=== PATIENT | male | born 1950 | race Caucasian/White ===

== ENCOUNTER 2016-09-25 21:20 | Emergency (ER) | payer OTHER, MEDICARE ==
--- NOTE | 2016-09-25 22:50 | ED ORDER SUMMARY ---
..... Patient: YOON DOWELL OrderSheet [facility] VisitID: [id number] [address] [place] [address] 66y, M Registration Date/Time: 09/25/2016 ORDER SHEET Weight: 97.5 kg (stated) Allergies: Penicillins GENERAL ORDERS: MEDICATION ORDERS: Benadryl PO 50 mg (NOW) (21:40 09/25/2016 Gianlefaustino P.A.-C) (Ack 21:40 JDeElena R.N.) (21:43 JDeElena R.N.) Dexamethasone PO 8mg (NOW) (21:40 09/25/2016 Gerhard P.A.-C) (Ack 21:40 JDeElena R.N.) (21:43 JDeElena R.N.) IV FLUIDS: ORDER SHEET NOTES: [Electronically signed by Daniel Soto R.N. (23:01 09/25/2016)] [Electronically signed by Yane Nation P.A.-C (14:48 09/26/2016)] [Electronically locked/signed by Daniel Soto R.N. (23:01 09/25/2016)]
--- NOTE | 2016-09-25 22:50 | ED NURSING NOTES ---
Clinical Report - Nurses [facility] [address] [address] 09/25/2016 21:24 Patient: JOHNSON DOWELL TRIAGE Triage time 21:30. Acuity: LEVEL 4. Chief Complaint: SKIN RASH and . Johnson says he ate lemon chicken and anguillan fries, went to take a shower, and noticed redness and swelling around his eyes and on his cheeks. The areas are non-tender and do not itch. He reports he can feel his eyes swelling. Johnson believes he may be allergic to the lemon chicken they consumed tonight. Alert. No acute distress. SEPSIS SCREEN: Sepsis Screen: negative. Negative (no infection suspected/documented). --21:35 Ishaan Preciado R.N. 21:30 09/25/16. BP: 179/93 (regular adult cuff) taken on the left arm, via an automated monitor, while sitting. HR: 71 (normal rate). RR: 16 (regular, unlabored and normal). O2 saturation: 94% on room air. Temp: 98 F (oral). Pain level now: 0/10. --21:35 Ishaan Preciado R.N. Weight: 97.5 kg stated. Height/Length: 68 inches Per Patient. BMI: 32.7. --21:33 Ishaan Preciado R.N. Medications ALPRAZolam Oral. --21:33 Ishaan Preciado R.N. Multivitamins Oral. --21:33 Ishaan Preciado R.N. Medication/allergy information source: the patient. --21:35 Ishaan Preciado R.N. Allergies Penicillins. --21:34 Ishaan Preciado R.N. History Arrived by private vehicle. Historian: patient. Accompanied by spouse. Primary physician (Dr. Napoles). Reported as located on the face. This started just prior to arrival. Not itchy, burning or painful. SOCIAL HX: Smoker- current status unknown. Never smoker. No alcohol use or drug use. He has not traveled outside the [place] The patient was not exposed to MRSA. ABUSE ASSESSMENT: Abuse assessment: The patient was asked "Do you feel safe in your home?" and "Has anyone hurt you or threatened to hurt you?". No report of abuse. SELF HARM ASSESSMENT: A self harm assessment was performed. The patient answered "no" to the question "Do you have thoughts of harming or killing yourself?" and "Have you recently had thoughts about harming or killing others?". FALL RISK ASSESSMENT: Fall risk assessment completed. No fall risk identified. NUTRITIONAL RISK ASSESSMENT: The nutritional risk assessment revealed no deficiencies. FUNCTIONAL ASSESSMENT: Functional assessment: no impairments noted. LEARNING NEEDS ASSESSMENT: The learning needs assessment revealed no barriers. SKIN INTEGRITY ASSESSMENT: Skin integrity risk assessment completed. No skin integrity risk identified. --21:35 Ishaan Preciado R.N. ADDITIONAL SURGERIES: Hernia Repair. --21:35 Ishaan Preciado R.N. Assessment GENERAL / NEURO / PSYCH: Alert. Oriented X 4. Appears in no acute distress. [place] Coma Scale: 15- eyes open spontaneously (4); best verbal response- oriented x 4 (5); best motor response- obeys commands (6). Patient appears calm and cooperative. RESPIRATORY: Respirations not labored. SKIN: Skin is warm and dry. --21:35 Ishaan Preciado R.N. Interventions ID band on patient. To treatment room. --21:35 Ishaan Preciado R.N. PHYSICAL ASSESSMENT Ambulatory to room. GENERAL / NEURO / PSYCH: Alert. The patient does not appear to be in acute distress. Oriented X 4. RESPIRATORY: No respiratory distress. Respirations not labored. Breath sounds within normal limits. CVS: Heart sounds within normal limits. Capillary refill less than 2 seconds. Pulses within normal limits. GI / : Abdomen nontender and soft. SKIN: ( Erythema noted to face around cheeks). --21:40 Ishaan Preciado R.N. NURSING PROGRESS NOTES The initial plan of care for this patient has been created This plan of care was discussed with the patient. Patient gowned. Reassurance given to the patient. Two patient identifiers checked. Call light placed in reach. Side rails up x 1. Bed placed in lowest position. Brakes of bed on. --21:36 Ishaan Preciado R.N. 21:36 09/25/16. BP: 177/90 (regular adult cuff) taken on the right arm, via an automated monitor, while lying. HR: 74 (normal rate). O2 saturation: 96% on room air. --21:36 Ishaan Preciado R.N. 21:43 09/25/2016 Benadryl (DiphenhydrAMINE HCl) PO Capsules 50 mg given. Allergies verified, confirmed 5 rights and sedative warning given to the patient. --21:43 Ishaan Preciado R.N. 21:43 09/25/2016 Dexamethasone (Dexamethasone) PO Tablets 8 mg given. Allergies verified and confirmed 5 rights. --21:43 Ishaan Preciado R.N. Reassessment after medication administered (States he feels a lot better.). He is calm and resting quietly. Overall patient status is improved- he states feels better. RESPIRATORY: No respiratory distress. SKIN: Skin is warm and dry. Skin color within normal limits. --22:29 Ishaan Preciado R.N. 22:28 09/25/16. BP: 167/90 (regular adult cuff) taken on the left arm, via an automated monitor, while sitting. HR: 71 (normal rate). RR: 14 (regular, unlabored and normal). O2 saturation: 94% on room air. --22:29 Ishaan Preciado R.N. DISPOSITION / DISCHARGE Departure time: 23:00. Condition at departure: improved. ( the facial swelling has improved). No learning barriers present. Discharge instructions provided and reviewed with the patient and spouse. Reviewed medication(s) side effects, precautions, dosing and course information. Prescription(s) given to the patient. Patient and spouse verbalized understanding. Written instructions provided in Cuban. ( Pt was educated about neck swelling, sob and tightness in throat to call 911 and come to the ER.). The patient was discharged by the physician assistant technician. He was discharged home and accompanied by spouse. He left the Emergency Department ambulatory and via private vehicle. Spouse driving. --23:00 Daniel Soto R.N. Locked/Released at 09/25/2016 23:01 by Daniel Soto R.N.
--- NOTE | 2016-09-25 22:50 | ED NURSING NOTES ---
Clinical Report - Nurses [facility] [address] [place] [address] 09/25/2016 21:24 Patient: JOHNSON DOWELL TRIAGE Triage time 21:30. Acuity: LEVEL 4. Chief Complaint: SKIN RASH and . Johnson says he ate lemon chicken and egyptian fries, went to take a shower, and noticed redness and swelling around his eyes and on his cheeks. The areas are non-tender and do not itch. He reports he can feel his eyes swelling. Johnson believes he may be allergic to the lemon chicken they consumed tonight. Alert. No acute distress. SEPSIS SCREEN: Sepsis Screen: negative. Negative (no infection suspected/documented). --21:35 Ishaan Preciado R.N. 21:30 09/25/16. BP: 179/93 (regular adult cuff) taken on the left arm, via an automated monitor, while sitting. HR: 71 (normal rate). RR: 16 (regular, unlabored and normal). O2 saturation: 94% on room air. Temp: 98 F (oral). Pain level now: 0/10. --21:35 Ishaan Preciado R.N. Weight: 97.5 kg stated. Height/Length: 68 inches Per Patient. BMI: 32.7. --21:33 Ishaan Preciado R.N. Medications ALPRAZolam Oral. --21:33 Ishaan Preciado R.N. Multivitamins Oral. --21:33 Ishaan Preciado R.N. Medication/allergy information source: the patient. --21:35 Ishaan Preciado R.N. Allergies Penicillins. --21:34 Ishaan Preciado R.N. History Arrived by private vehicle. Historian: patient. Accompanied by spouse. Primary physician (Dr. Napoles). Reported as located on the face. This started just prior to arrival. Not itchy, burning or painful. SOCIAL HX: Smoker- current status unknown. Never smoker. No alcohol use or drug use. He has not traveled outside the [place] The patient was not exposed to MRSA. ABUSE ASSESSMENT: Abuse assessment: The patient was asked "Do you feel safe in your home?" and "Has anyone hurt you or threatened to hurt you?". No report of abuse. SELF HARM ASSESSMENT: A self harm assessment was performed. The patient answered "no" to the question "Do you have thoughts of harming or killing yourself?" and "Have you recently had thoughts about harming or killing others?". FALL RISK ASSESSMENT: Fall risk assessment completed. No fall risk identified. NUTRITIONAL RISK ASSESSMENT: The nutritional risk assessment revealed no deficiencies. FUNCTIONAL ASSESSMENT: Functional assessment: no impairments noted. LEARNING NEEDS ASSESSMENT: The learning needs assessment revealed no barriers. SKIN INTEGRITY ASSESSMENT: Skin integrity risk assessment completed. No skin integrity risk identified. --21:35 Ishaan Preciado R.N. ADDITIONAL SURGERIES: Hernia Repair. --21:35 Ishaan Preciado R.N. Assessment GENERAL / NEURO / PSYCH: Alert. Oriented X 4. Appears in no acute distress. [place] Coma Scale: 15- eyes open spontaneously (4); best verbal response- oriented x 4 (5); best motor response- obeys commands (6). Patient appears calm and cooperative. RESPIRATORY: Respirations not labored. SKIN: Skin is warm and dry. --21:35 Ishaan Preciado R.N. Interventions ID band on patient. To treatment room. --21:35 Ishaan Preciado R.N. PHYSICAL ASSESSMENT Ambulatory to room. GENERAL / NEURO / PSYCH: Alert. The patient does not appear to be in acute distress. Oriented X 4. RESPIRATORY: No respiratory distress. Respirations not labored. Breath sounds within normal limits. CVS: Heart sounds within normal limits. Capillary refill less than 2 seconds. Pulses within normal limits. GI / : Abdomen nontender and soft. SKIN: ( Erythema noted to face around cheeks). --21:40 Ishaan Preciado R.N. NURSING PROGRESS NOTES The initial plan of care for this patient has been created This plan of care was discussed with the patient. Patient gowned. Reassurance given to the patient. Two patient identifiers checked. Call light placed in reach. Side rails up x 1. Bed placed in lowest position. Brakes of bed on. --21:36 Ishaan Preciado R.N. 21:36 09/25/16. BP: 177/90 (regular adult cuff) taken on the right arm, via an automated monitor, while lying. HR: 74 (normal rate). O2 saturation: 96% on room air. --21:36 Ishaan Preciado R.N. 21:43 09/25/2016 Benadryl (DiphenhydrAMINE HCl) PO Capsules 50 mg given. Allergies verified, confirmed 5 rights and sedative warning given to the patient. --21:43 Ishaan Preciado R.N. 21:43 09/25/2016 Dexamethasone (Dexamethasone) PO Tablets 8 mg given. Allergies verified and confirmed 5 rights. --21:43 Ishaan Preciado R.N. Reassessment after medication administered (States he feels a lot better.). He is calm and resting quietly. Overall patient status is improved- he states feels better. RESPIRATORY: No respiratory distress. SKIN: Skin is warm and dry. Skin color within normal limits. --22:29 Ishaan Preciado R.N. 22:28 09/25/16. BP: 167/90 (regular adult cuff) taken on the left arm, via an automated monitor, while sitting. HR: 71 (normal rate). RR: 14 (regular, unlabored and normal). O2 saturation: 94% on room air. --22:29 Ishaan Preciado R.N. DISPOSITION / DISCHARGE Departure time: 23:00. Condition at departure: improved. ( the facial swelling has improved). No learning barriers present. Discharge instructions provided and reviewed with the patient and spouse. Reviewed medication(s) side effects, precautions, dosing and course information. Prescription(s) given to the patient. Patient and spouse verbalized understanding. Written instructions provided in Scottish. ( Pt was educated about neck swelling, sob and tightness in throat to call 911 and come to the ER.). The patient was discharged by the physician bakery assistant. He was discharged home and accompanied by spouse. He left the Emergency Department ambulatory and via private vehicle. Spouse driving. --23:00 Daniel Soto R.N. Locked/Released at 09/25/2016 23:01 by Daniel Soto R.N.
--- NOTE | 2016-09-25 22:50 | ED CLINICAL REPORT ---
Clinical Report - Physicians/Mid Levels [facility] [address] [address] 09/25/2016 21:24 Patient: YOON DOWELL Time Seen: 21:33 Sep 25 2016. Arrived- By private vehicle. Historian- patient. HISTORY OF PRESENT ILLNESS Chief Complaint: ALLERGIC REACTION and SKIN RASH. FACIAL SWELLING. This started just prior to arrival and is still present. The patient has had a skin rash and swelling. No difficulty breathing. A possible cause has been identified (food (chicken)). No recent medication. The patient was not assessed by EMS prior to arrival. (Pt reports swelling to eyes/ nose, no diff swallowing or breathing, no emesis/ diarrhea. No sob. Onset after eating chicken. No prior h/o similar. No meds prior to arrival. No recent illness/ travel). REVIEW OF SYSTEMS No sore throat, sputum production or chills. All systems otherwise negative, except as recorded above. PAST HISTORY Additional Surgeries: Hernia Repair. Medications: Multivitamins Oral. ALPRAZolam Oral. Allergies: Penicillins. SOCIAL HISTORY Never smoker. No alcohol use or drug use. ADDITIONAL NOTES The nursing notes have been reviewed. PHYSICAL EXAM Vital Signs: 09/25/2016 21:30 BP: 179/93. HR: 71. RR: 16. O2 saturation: 94%. Temp: 98 F. Pain level now: 0/10. Appearance: Alert. No apparent distress. Does not appear to be anxious. Head: Mild facial angioedema involving the right periorbital area. ENT: Ears normal. Voice normal. Neck: No lymphadenopathy. CVS: Normal heart rate and rhythm. Heart sounds normal. Rate normal. Respiratory: No respiratory distress. No respiratory distress. Breath sounds normal. No decreased air movement or prolonged expiration. Abdomen: Nontender. No obesity or abdominal tenderness. Extremities: Normal external inspection. Extremities nontender. Skin: Normal skin color. Skin rash (fine hives at abdomen). PROGRESS AND PROCEDURES Course of Care: Pt with improvement in ER, no wheezing, no further worsening, fine rash of abd improving. His face is improving as well in regard to swelling. No other signs of systemic/ infectious disease. stable for d/c. Given dexamethasone 8 mg po benadryl 50 mg po in the er. Patient is stable. Symptoms better. Patient/family counseled. Disposition: Discharged. Condition: good. CLINICAL IMPRESSION Acute urticaria. INSTRUCTIONS Warnings: GENERAL WARNINGS: Return or contact your physician immediately if your condition worsens or changes unexpectedly, if not improving as expected, or if other problems arise. OTC Medications: Benadryl (available over the counter): take according to label instructions. Follow-up: Follow up with your doctor in three as needed. (Electronically signed by Yane Nation P.A.-C 09/26/2016 14:48)
--- NOTE | 2016-09-25 22:50 | ED CLINICAL REPORT ---
Clinical Report - Physicians/Mid Levels [facility] [address] [address] 09/25/2016 21:24 Patient: YOON DOWELL Time Seen: 21:33 Sep 25 2016. Arrived- By private vehicle. Historian- patient. HISTORY OF PRESENT ILLNESS Chief Complaint: ALLERGIC REACTION and SKIN RASH. FACIAL SWELLING. This started just prior to arrival and is still present. The patient has had a skin rash and swelling. No difficulty breathing. A possible cause has been identified (food (chicken)). No recent medication. The patient was not assessed by EMS prior to arrival. (Pt reports swelling to eyes/ nose, no diff swallowing or breathing, no emesis/ diarrhea. No sob. Onset after eating chicken. No prior h/o similar. No meds prior to arrival. No recent illness/ travel). REVIEW OF SYSTEMS No sore throat, sputum production or chills. All systems otherwise negative, except as recorded above. PAST HISTORY Additional Surgeries: Hernia Repair. Medications: Multivitamins Oral. ALPRAZolam Oral. Allergies: Penicillins. SOCIAL HISTORY Never smoker. No alcohol use or drug use. ADDITIONAL NOTES The nursing notes have been reviewed. PHYSICAL EXAM Vital Signs: 09/25/2016 21:30 BP: 179/93. HR: 71. RR: 16. O2 saturation: 94%. Temp: 98 F. Pain level now: 0/10. Appearance: Alert. No apparent distress. Does not appear to be anxious. Head: Mild facial angioedema involving the right periorbital area. ENT: Ears normal. Voice normal. Neck: No lymphadenopathy. CVS: Normal heart rate and rhythm. Heart sounds normal. Rate normal. Respiratory: No respiratory distress. No respiratory distress. Breath sounds normal. No decreased air movement or prolonged expiration. Abdomen: Nontender. No obesity or abdominal tenderness. Extremities: Normal external inspection. Extremities nontender. Skin: Normal skin color. Skin rash (fine hives at abdomen). PROGRESS AND PROCEDURES Course of Care: Pt with improvement in ER, no wheezing, no further worsening, fine rash of abd improving. His face is improving as well in regard to swelling. No other signs of systemic/ infectious disease. stable for d/c. Given dexamethasone 8 mg po benadryl 50 mg po in the er. Patient is stable. Symptoms better. Patient/family counseled. Disposition: Discharged. Condition: good. CLINICAL IMPRESSION Acute urticaria. INSTRUCTIONS Warnings: GENERAL WARNINGS: Return or contact your physician immediately if your condition worsens or changes unexpectedly, if not improving as expected, or if other problems arise. OTC Medications: Benadryl (available over the counter): take according to label instructions. Follow-up: Follow up with your doctor in three as needed. (Electronically signed by Yane Nation P.A.-C 09/26/2016 14:48)
--- NOTE | 2016-09-25 22:50 | ED ORDER SUMMARY ---
..... Patient: YOON DOWELL OrderSheet [facility] VisitID: [id number] [address] [place] [address] 66y, M Registration Date/Time: 09/25/2016 ORDER SHEET Weight: 97.5 kg (stated) Allergies: Penicillins GENERAL ORDERS: MEDICATION ORDERS: Benadryl PO 50 mg (NOW) (21:40 09/25/2016 Gianlefaustino P.A.-C) (Ack 21:40 JDeElena R.N.) (21:43 JDeElena R.N.) Dexamethasone PO 8mg (NOW) (21:40 09/25/2016 Gerhard P.A.-C) (Ack 21:40 JDeElena R.N.) (21:43 JDeElena R.N.) IV FLUIDS: ORDER SHEET NOTES: [Electronically signed by Daniel Soto R.N. (23:01 09/25/2016)] [Electronically signed by Yane Nation P.A.-C (14:48 09/26/2016)] [Electronically locked/signed by Daniel Soto R.N. (23:01 09/25/2016)]
--- NOTE | 2016-09-26 14:48 | ED MAR SUMMARY ---
..... Medication Administration Record [facility] [address] [place] [address] Patient: YOON DOWELL Visit ID: [id number] 66y, M Weight: 97.5 kg Height/Length: 68 in BMI: 32.7 ALLERGIES: Penicillins Given 21:09/25/2016 Ishaan Preciado, R.N. Medication Administered: BENADRYL [PO] (DIPHENHYDRAMINE HCL), Dose: 50 mg Capsules PO. Medication Ordered: Benadryl PO 50 mg (NOW). Given 21:09/25/2016 Ishaan Preciado, R.N. Medication Administered: DEXAMETHASONE [PO] (DEXAMETHASONE), Dose: 8 mg Tablets PO. Medication Ordered: Dexamethasone PO 8mg (NOW).
--- NOTE | 2016-09-26 14:48 | ED MAR SUMMARY ---
..... Medication Administration Record [facility] [address] [place] [address] Patient: YOON DOWELL Visit ID: [id number] 66y, M Weight: 97.5 kg Height/Length: 68 in BMI: 32.7 ALLERGIES: Penicillins Given 21:09/25/2016 Ishaan Preciado, R.N. Medication Administered: BENADRYL [PO] (DIPHENHYDRAMINE HCL), Dose: 50 mg Capsules PO. Medication Ordered: Benadryl PO 50 mg (NOW). Given 21:09/25/2016 Ishaan Preciado, R.N. Medication Administered: DEXAMETHASONE [PO] (DEXAMETHASONE), Dose: 8 mg Tablets PO. Medication Ordered: Dexamethasone PO 8mg (NOW).
--- NOTE | 2016-09-26 14:48 | ED MED RECONCILIATION SUMMARY ---
Patient: YOON DOWELL Medication Reconciliation Report [facility] VisitID: [id number] [address] [place] [address] 66y, M Registration Date/Time: 09/25/2016 Weight: 97.5 kg Height/Length: 68 in. BMI: 32.7 ALLERGIES: Penicillins The patient's Home Medications are listed below: THE FOLLOWING MEDICATIONS NEED TO BE RECONCILED: ALPRAZolam Oral Multivitamins Oral The source(s) of the original Home Medication information: patient The following Medications were given to the patient in the Emergency Department: Benadryl [PO] PO 50 mg, administered: 09/25/2016 9:43:00 PM Dexamethasone [PO] PO 8 mg, administered: 09/25/2016 9:43:00 PM The following Medications were prescribed to the patient: Benadryl (available over the counter): take according to label instructions. -- Yane Nation, PVíctorAVíctor-C
--- NOTE | 2016-09-26 14:48 | ED DISCHARGE INSTRUCTIONS ---
Patient: YOON DOWELL General Instructions [facility] VisitID: [id number] [place] [address] 66y, M Registration Date/Time: 09/25/2016 Acute urticaria. INSTRUCTIONS Warnings: GENERAL WARNINGS: Return or contact your physician immediately if your condition worsens or changes unexpectedly, if not improving as expected, or if other problems arise. OTC Medications: Benadryl (available over the counter): take according to label instructions. Follow-up: Follow up with your doctor in three as needed. ADDITIONAL INFORMATION Hives Hives is an itchy red rash that can appear suddenly and move about your body. It goes away in one place and comes back in another. This is usually caused by something that you are allergic to such as: EATING: fruit, shellfish, chocolate, nuts, tomatoes or medicine BREATHING: pollens, animal hair/fur or mold spores Exposure to cold air, sun rays or exercise can sometimes cause an attack. Many times we cannot find a cause. Medicines can be used to reduce itching and swelling. The rash will usually fade over several days, but can sometimes last up to two weeks. Home Care: 1) Do not wear tight clothing and do not take hot baths/showers since heat can make the itching worse. 2) An ice pack (ice cubes in a plastic bag, wrapped in a towel) will reduce local areas of redness and itching. Lanacaine cream or Solarcaine spray (or other product containing "benzocaine") will reduce itching. 3) Oral Benadryl (diphenhydramine) is an antihistamine available at drug and grocery stores. Unless a prescription antihistamine was given, Benadryl may be used to reduce itching if large areas of the skin are involved. Use lower doses during the daytime and higher doses at bedtime since the drug may make you sleepy. [NOTE: Do not use Benadryl if you have glaucoma or if you are a man with trouble urinating due to an enlarged prostate.] Claritin (loratadine) is an antihistamine that causes less drowsiness and is a good alternative for daytime use. 4) If you know what you are sensitive to, avoid this substance. Future reactions could be worse than this one. Follow Up with your doctor as directed by our staff, if symptoms do not begin to improve in two days. If you have had a severe reaction, or have had several episodes of hives, then ask your doctor about allergy testing to find out what you are allergic to. Get Prompt Medical Attention if any of the following occur: -- Trouble breathing or swallowing -- New or increased swelling in the face, lips, tongue or throat -- Dizziness, weakness or fainting You have been given the following additional information: Hives (Electronically signed by Yane Nation P.A.-C 09/26/2016 14:48)
--- NOTE | 2016-09-26 14:48 | ED MED RECONCILIATION SUMMARY ---
Patient: YOON DOWELL Medication Reconciliation Report [facility] VisitID: [id number] [address] [place] [address] 66y, M Registration Date/Time: 09/25/2016 Weight: 97.5 kg Height/Length: 68 in. BMI: 32.7 ALLERGIES: Penicillins The patient's Home Medications are listed below: THE FOLLOWING MEDICATIONS NEED TO BE RECONCILED: ALPRAZolam Oral Multivitamins Oral The source(s) of the original Home Medication information: patient The following Medications were given to the patient in the Emergency Department: Benadryl [PO] PO 50 mg, administered: 09/25/2016 9:43:00 PM Dexamethasone [PO] PO 8 mg, administered: 09/25/2016 9:43:00 PM The following Medications were prescribed to the patient: Benadryl (available over the counter): take according to label instructions. -- Yane Nation, PVíctorAVíctor-C
== END 2016-09-25 23:00 | disposition home or self-care (01) ==
LOC: ED SRH 21:20
DX: L50.9 Urticaria, unspecified (principal); Z88.0 Allergy status to penicillin